=== PATIENT | female | born 1940 | race Caucasian/White ===

== ENCOUNTER 2018-05-30 15:13 | Observation (INO) | payer MEDICARE, BC ==
[2018-05-30 16:04] LABS: BASOPHILS % (AUTO) 2 % (0-3); EOSINOPHILS % (AUTO) 4 % (0-9); HEMATOCRIT 34 % (35-47); HEMOGLOBIN 10.6 gm/dl (12.0-15.5); LYMPHOCYTES % (AUTO) 12.97 % (10-50); MEAN CORPUSCULAR HEMOGLOBIN 27.8 pg (27.0-32.0); MEAN CORPUSCULAR HGB CONC 31.6 gm/dl (32.0-36.0); MEAN CORPUSCULAR VOLUME 88 fL (81-99); MONOCYTES % (AUTO) 10.1 % (0-12); NEUTROPHILS % (AUTO) 71.4 % (37-80)
[2018-05-30 16:09] LABS: INR 1.02 (0.86-1.12)
[2018-05-30 16:17] LABS: ALBUMIN 2.6 gm/dl (3.4-5.0); BILIRUBIN,TOTAL 0.4 mg/dl (0.2-1.0); CALCIUM 8.4 mg/dl (8.5-10.1); CARBON DIOXIDE 26.5 mEq/L (21-32); CREATININE 1.02 mg/dl (0.60-1.00); POTASSIUM 3.5 mMol/L (3.5-5.1)
[2018-05-30] MEDS ORDERED: SODIUM CHLORIDE 0.9% 1000ML 1,000 ML IV ONE ×2 (16:31→18:31)
[2018-05-30] MEDS ORDERED: SODIUM CHLORIDE 0.9% 1000ML 1,000 ML IV NR (18:30)
[2018-05-30] MEDS ORDERED: TIZANIDINE HCL 2 MG PO PRN (20:52)
[2018-05-30] MEDS ORDERED: VANQUISH PO PRN (20:52)
[2018-05-30] MEDS ORDERED: PSEUDOEPHEDRINE HCL PO PRN (20:52)
[2018-05-30] MEDS ORDERED: AZELASTINE HYDROCHLORIDE NS PRN (20:52)
[2018-05-30] MEDS ORDERED: HYDROXYCHLOROQUINE SULFATE 200 MG TAB PO SCH (21:00)
[2018-05-30 21:09] LABS: ABO O; ANTIBODY SCREEN Negative; RH TYPE Positive
[2018-05-30 21:20] LABS: UNIT TYPE O POSITIVE
[2018-05-30 21:21] LABS: UNIT TYPE O POSITIVE
[2018-05-30] MEDS ORDERED: PATIENT EDUCATION 1 MISC PRN (21:22)
[2018-05-30] MEDS ORDERED: FUROSEMIDE 20mg SOL IV ONE (22:16)
[2018-05-30] MEDS: AMOXIL/CLAVULANATE 875/125 TAB PO SCH (22:31)
[2018-05-30] MEDS: APAP/HYDROCODONE 325/5 TAB PO PRN (22:31)
[2018-05-31] MEDS: APAP/HYDROCODONE 325/5 TAB PO PRN (06:00)
[2018-05-31 08:03] VITALS: BP 128/70; PULSE 88; RESP 20; TEMP 98.2; O2SAT 94
[2018-05-31] MEDS ORDERED: CALCIUM CARBONATE 500 MG TAB PO SCH (09:00)
[2018-05-31] MEDS ORDERED: CHOLECALCIFEROL 1,000 IU TAB PO SCH (09:00)
[2018-05-31] MEDS ORDERED: VITAMIN D3 PO SCH (09:00)
[2018-05-31] MEDS ORDERED: FEXOFENADINE HCL 180 MG TAB PO SCH (09:00)
[2018-05-31] MEDS ORDERED: [UNRECOGNIZED DRUG - OTHER] PO SCH (09:00)
[2018-05-31] MEDS ORDERED: FUROSEMIDE 20 MG TAB PO SCH (09:00)
[2018-05-31] MEDS ORDERED: METOPROLOL TARTRATE 25 MG TAB PO SCH (09:00)
[2018-05-31] MEDS ORDERED: LEFLUNOMIDE 20 MG PO SCH (09:00)
[2018-05-31] MEDS ORDERED: CALCIUM CARBONATE PO SCH (09:00)
[2018-05-31] MEDS ORDERED: FLUOXETINE HYDROCHLORIDE 10 MG CAP PO SCH (09:00)
[2018-05-31] MEDS: AMOXIL/CLAVULANATE 875/125 TAB PO SCH (09:49)
[2018-05-31] MEDS ORDERED: ATORVASTATIN 10 MG TAB PO SCH (21:00)
== END 2018-05-31 10:43 | disposition home or self-care (01) | DRG 151 ==
LOC: ED 15:13 → ACUTE CARE 20:44
PROVIDERS: ADMIT Family Medicine; ATTEND Family Medicine
DX: R04.0 Epistaxis (principal); I48.91 Unspecified atrial fibrillation; I10 Essential (primary) hypertension
CPT/HCPCS: 30901; 36415; 80053; 85018; 85025; 85610; 86850; 86900; 86901; 86920; 96365; 96366; 99070; 99285; J1940; P9016; A9270-GY

== ENCOUNTER 2018-06-04 07:54 | Emergency (ER) | payer MEDICARE, BC ==
[2018-06-04] MEDS ORDERED: PHENYLEPHRINE HCL 0.5% SPR NAS ONE (07:57)
[2018-06-04 08:33] VITALS: TEMP 96.8; O2SAT 95
[2018-06-04 08:41] LABS: BASOPHILS % (AUTO) 2 % (0-3); EOSINOPHILS % (AUTO) 8 % (0-9); HEMATOCRIT 33 % (35-47); HEMOGLOBIN 10.3 gm/dl (12.0-15.5); MEAN CORPUSCULAR HEMOGLOBIN 28.1 pg (27.0-32.0); MEAN CORPUSCULAR HGB CONC 31.3 gm/dl (32.0-36.0); MEAN CORPUSCULAR VOLUME 90 fL (81-99); MONOCYTES % (AUTO) 10.1 % (0-12); NEUTROPHILS % (AUTO) 65.3 % (37-80)
[2018-06-04 08:53] VITALS: BP 145/67; PULSE 75; RESP 18
== END 2018-06-04 09:30 | disposition home or self-care (01) | DRG 151 ==
LOC: ED 07:54
DX: R04.0 Epistaxis (principal)
CPT/HCPCS: 30905; 36415; 85025; 99283; A9270-GY

== ENCOUNTER 2018-07-12 06:41 | Emergency (ER) | payer MEDICARE, BC ==
[2018-07-12] MEDS ORDERED: LIDOCAINE 1% W/EPI MPF 30 ML SOL INFIL ONE (07:15)
[2018-07-12] MEDS ORDERED: LIDOCAINE 1% W/EPI MPF 30 ML SOL ONE (07:20)
[2018-07-12 07:57] VITALS: RESP 18; TEMP 97.8; O2SAT 97
[2018-07-12 07:59] VITALS: BP 148/64; PULSE 68
== END 2018-07-12 08:10 | disposition home or self-care (01) | DRG 159 ==
LOC: ED 06:41
DX: S01.511A Laceration without foreign body of lip, initial encounter (principal); W19.XXXA Unspecified fall, initial encounter
CPT/HCPCS: 12011; 99282; 99285; G0168

== ENCOUNTER 2019-02-07 06:57 | Day surgery (SDC) | payer MEDICARE, BC ==
[2019-02-07] MEDS ORDERED: ACETAZOLAMIDE 250 MG PO ONE (07:08)
[2019-02-07] MEDS: TETRACAINE HCL 0.5 % 1 DROP SOL ONE ×3 (07:18→08:35)
[2019-02-07] MEDS ORDERED: MIDAZOLAM 2 MG/2 ML SOL ONE (07:19)
[2019-02-07] MEDS: CYCLOPENTOLATE 1% SOL ONE ×2 (07:19→07:31)
[2019-02-07] MEDS: KETOROLAC 0.5% OPTH 60 DROP SOL ONE ×2 (07:19→07:31)
[2019-02-07] MEDS: PHENYLEPHRINE HCL 10% OPHTHAL SOL ONE ×2 (07:19→07:30)
[2019-02-07] MEDS ORDERED: FENTANYL 100MCG/2ML SOL ONE (07:19)
[2019-02-07 07:21] VITALS: RESP 16
[2019-02-07] MEDS ORDERED: BSS 500 ML 500 ML IR ONE (08:29)
[2019-02-07] MEDS ORDERED: POVIDONE IODINE 5% SOL ONE (08:29)
[2019-02-07] MEDS ORDERED: LIDOCAINE HCL 1% MPF 30 SOL ONE (08:29)
[2019-02-07] MEDS: IMPRIMIS ONE ×2 (08:41→08:51)
[2019-02-07 09:00] VITALS: BP 142/59; PULSE 56; TEMP 98.4; O2SAT 98
== END 2019-02-07 09:22 | disposition home or self-care (01) | DRG 125 ==
LOC: SURG 06:57
PROVIDERS: ATTEND Ophthalmology
DX: H25.89 Other age-related cataract (principal)
CPT/HCPCS: J2250; J3010; A9270-GY; J2001

== ENCOUNTER 2019-03-14 06:00 | Day surgery (SDC) | payer MEDICARE, BC ==
[~2019-03-14 06:00] MED LIST: ACETAZOLAMIDE 250 MG PO ONE
[2019-03-14] MEDS: TETRACAINE HCL 0.5 % 1 DROP SOL ONE ×3 (06:14→07:27)
[2019-03-14] MEDS: CYCLOPENTOLATE 1% SOL ONE ×2 (06:15→06:27)
[2019-03-14] MEDS: KETOROLAC 0.5% OPTH 60 DROP SOL ONE ×2 (06:15→06:27)
[2019-03-14] MEDS: PHENYLEPHRINE HCL 10% OPHTHAL SOL ONE ×2 (06:15→06:26)
[2019-03-14] MEDS ORDERED: LIDOCAINE HCL 1% MPF 30 SOL ONE (07:05)
[2019-03-14] MEDS ORDERED: MIDAZOLAM 2 MG/2 ML SOL ONE (07:06)
[2019-03-14] MEDS ORDERED: FENTANYL 100MCG/2ML SOL ONE (07:07)
[2019-03-14] MEDS ORDERED: POVIDONE IODINE 5% SOL ONE (07:23)
[2019-03-14] MEDS: BSS 500 ML 500 ML IR ONE ×2 (07:30→07:37)
[2019-03-14] MEDS: IMPRIMIS ONE ×2 (07:38→07:46)
[2019-03-14 07:57] VITALS: BP 133/64; PULSE 56; RESP 20; TEMP 97.5; O2SAT 92
== END 2019-03-14 08:22 | disposition home or self-care (01) | DRG 125 ==
LOC: SURG 06:00
PROVIDERS: ATTEND Ophthalmology
DX: H25.89 Other age-related cataract (principal)
CPT/HCPCS: J2250; J3010; A9270-GY; J2001